=== PATIENT | female | born 2000 | race Two or more races ===

== ENCOUNTER 2022-03-29 07:35 | Emergency (ER) | payer OTHER ==
[~2022-03-29] VITALS: Ht 162.6 cm; Wt 72.6 kg
== END 2022-03-29 12:46 | disposition home or self-care (01) ==
LOC: ER 07:35
DX: O98.513 Other viral diseases complicating pregnancy, third trimester (principal); J10.1 Influenza due to other identified influenza virus with other respiratory manifestations; Z3A.38 38 weeks gestation of pregnancy; Z20.822 Contact with and (suspected) exposure to COVID-19; Z88.8 Allergy status to other drugs, medicaments and biological substances

== ENCOUNTER 2022-04-03 12:09 | Outpatient (CLI) | payer OTHER ==
[2022-04-04] MEDS ORDERED: PRENATAL + DHA1 EAC1 PO (12:53)
== END 2022-04-03 21:11 | disposition home or self-care (01) ==
LOC: OBS/DEL 12:09
PROVIDERS: ATTEND Student in an Organized Health Care Education/Training Program
DX: O47.1 False labor at or after 37 completed weeks of gestation (principal); O41.8X30 Other specified disorders of amniotic fluid and membranes, third trimester, not applicable or unspecified; Z3A.39 39 weeks gestation of pregnancy; Z20.822 Contact with and (suspected) exposure to COVID-19; Z88.2 Allergy status to sulfonamides

== ENCOUNTER 2022-04-04 12:02 | Inpatient (IN) | payer OTHER ==
[~2022-04-04] VITALS: Ht 162.6 cm; Wt 72.6 kg
[2022-04-04] MEDS ORDERED: PRENATAL + DHA1 EAC1 PO (12:53)
== END 2022-04-06 14:05 | disposition home or self-care (01) | DRG 807 ==
LOC: OB/GYN 12:02 → LDR 12:02 → OB/GYN 23:03
PROVIDERS: ADMIT Student in an Organized Health Care Education/Training Program; ATTEND Student in an Organized Health Care Education/Training Program
PROC: 10E0XZZ Delivery of Products of Conception, External Approach (ICD-10-PCS; principal; 2022-04-04)
PROC: 0HQ9XZZ Repair Perineum Skin, External Approach (ICD-10-PCS; 2022-04-04)
PROC: 4A1HXCZ Monitoring of Products of Conception, Cardiac Rate, External Approach (ICD-10-PCS; 2022-04-04)
DX: O70.0 First degree perineal laceration during delivery (principal); Z37.0 Single live birth; O99.824 Streptococcus B carrier state complicating childbirth; Z3A.39 39 weeks gestation of pregnancy; Z20.822 Contact with and (suspected) exposure to COVID-19